=== PATIENT | male | born 1950 | race Caucasian/White ===

== ENCOUNTER 2017-09-02 15:58 | Emergency (ER) | payer MEDICARE, MEDICAID ==
--- NOTE | 2017-09-02 16:55 | ED Physician Chart ---
ED Chief Complaint/HPI - Patient Information Date Seen:: 09/02/17 Time Seen:: 16:15 Chief Complaint:: Abdominal Pain History of Present Illness:: onset x 3 days of increasing, intermittent, crampy, diffuse abdominal pain and distention; no report of trauma, H/As, neck pain, C/P, SOB, cough, A/N/V/D/C, fever, chills, or urinary s/s Allergies:: Allergies Allergy/AdvReac Type Severity Reaction Status Date / Time No Known Allergies Allergy Verified 09/02/17 16:37 Vitals:: Vital Signs - 8 hr 09/02/17 16:19 Temp 97.8 F HR 82 RR 16 BP 140/97 O2 Sat % 98 Historian:: Patient, EMS Review:: Nurse's Note Reviewed, Old Chart Reviewed, EMS run form Reviewed ED Review of Systems - Review of Systems General/Constitutional: No fever, No chills, No weight loss, No weakness, No diaphoresis, No edema, No loss of appetite Skin: No skin lesions, No rash, No bruising Head: No headache, No light-headedness Eyes: No loss of vision, No pain, No diplopia ENT: No earache, No nasal drainage, No sore throat, No tinnitus Neck: No neck pain, No swelling, No thyromegaly, No stiffness, No mass noted Cardio Vascular: No chest pain, No palpitations, No PND, No orthopnea, No edema Pulmonary: No SOB, No cough, No sputum, No wheezing GI: Nausea, Vomiting, Diarrhea, Pain, No melena, No hematochezia, No constipation, No hematemesis G/U: No dysuria, No frequency, No hematuria, No nacturia Musculoskeletal: No bone or joint pain, No back pain, No muscle pain Endocrine: No polyuria, No polydipsia Psychiatric: No prior psych history, No depression, No anxiety, No suicidal ideation, No homicidal ideation, No auditory hallucination, No visual hallucination Hematopoietic: No bruising, No lymphadenopathy Allergic/Immuno: No urticaria, No angioedema Neurological: No syncope, No focal symptoms, No weakness, No paresthesia, No headache, No seizure, No dizziness, No confusion, No vertigo ED Past Medical History - Past Medical History Obtainable: Yes Past Medical History: HTN, DM, Dyslipidemia, ESRD Family History: Diabetes Melitus, HTN Social History: Smoker, Alcohol, No Drug Use, Single, Care Facility Surgical History: other (BKA) Psychiatricy History: None Medication: Reviewed Family Medical History - Family Member Mother History Unknown: Yes Ethnicity: Living Status: ED Physical Exam - Physical Examination General/Constitutional: Awake, Well-developed, well-nourished, Alert, No distress, GCS 15, Non-toxic appearing, Ambulatory Head: Atraumatic Eyes: Lids, conjuctiva normal, PERRL, EOMI Skin: Nl inspection, No rash, No skin lesions, No ecchymosis, Well hydrated, No lymphadenopathy ENMT: External ears, nose nl, TM canals nl, Nasal exam nl, Lips, teeth, gums nl , Oropharynx nl, Tonsils nl Neck: Nontender, Full ROM w/o pain, No JVD, No nuchal rigidity, No bruit, No mass, No stridor Other Neck comments:: supple; no meningeal signs; no cervical tenderness Respiratory: Nl effort/Exclusion Other Respiratory comments:: Lungs: + Rales Cardio Vascular: RRR, No murmur, gallop, rubs, NL S1 S2, Carotid/Femoral/Distal pulses equal bilaterally GI: No tenderness/rebounding/guarding, No organomegaly, No hernia, Normal BS's, No mass/bruits, No McBurney tenderness, Rectum exam nl Other GI comments:: no pulsatile masses; + Distention; + Ascites : No CVA tenderness Extremities: No tenderness or effusion, Full ROM, normal strength in all extremities, No edema, Normal digits & nails Other Extremities comments:: + BKA Neuro/Psych: Alert/oriented, DTR's symmetric, Normal sensory exam, Normal motor strength, Judgement/insight normal, Mood normal, Normal gait, No focal deficits Misc: Normal back, No paraspinal tenderness ED Labs/Radiology/EKG Results - Lab Results Comments:: BNP: 4750;; BUN: 33; Cr: 2.4; WBC: 3.7; Na+: 133 - Radiology Results Comments:: deferred by pt - EKG Interpretations EKG Time:: 17:01 Rate & Rhythm: 79; NSR Comments:: non-specific st-t changes ED Septic Shock - . Is Septic Shock (SBP<90, OR Lactate>4 mmol\L) present?: No - <6hrs of presentation: Vital Signs: Vital Signs - 8 hr 09/02/17 16:19 Temp 97.8 F HR 82 RR 16 BP 140/97 O2 Sat % 98 ED Reassessment (Disposition) - Reassessment Reassessment Condition:: Improved - Diagnosis Diagnosis:: Abdominal Pain; Abdominal Distention; Ascites; Leukopenia; CHF; Renal Insuffiency; CKD; Cirrhosis - Aftercare/Follow up Instructions Aftercare/Follow-Up Instructions:: Counseled pt regarding lab results/diagnosis & need follow up, Counseled pt & family regarding lab results/diagnosis & need follow up - Patient Disposition Discharge/Transfer:: Acute Care w/in this hosp Accepting Physician:: Dr. Liz Time Called:: 1800 Time Responded:: 18:00 Admitted to:: Telemetry Spoke to:: Dr. Liz Admitting Medical Physician:: Dr. Liz Condition at Disposition:: Stable, Improved
[2017-09-02 17:26] LABS: % BASOPHILS 1.3 % (0.0-2.0); % EOSINOPHILS 4.7 % (0.0-5.0); % LYMPHOCYTES 15.4 % (20.0-50.0); % MONOCYTES 9.6 % (2.0-10.0); EOSINOPHILE ABSOLUTE 0.2 Th/cmm (0.1-0.4); HEMOGLOBIN 13.3 gm/dL (12-16); LYMPHOCYTE ABSOLUTE 0.6 Th/cmm (1.5-3.0); MEAN CORPUSCULAR HEMOGLOBIN 27.3 pg (26.0-30.0); MEAN CORPUSCULAR HGB CONC 32.5 pg (28.0-36.0); MEAN PLATELET VOLUME 8.5 fl; MONOCYTE ABSOLUTE 0.4 Th/cmm (0.3-1.0); NEUTROPHILE ABSOLUTE 2.5 Th/cmm (1.8-8.0); PLATELET COUNT 122 Th/cmm (150-400); RED BLOOD COUNT 4.88 Mil/cmm (4.30-5.70); RED CELL DISTRIBUTION WIDTH 16.1 % (11.5-20.0)
[2017-09-02 17:29] LABS: WHITE BLOOD COUNT 3.7 Th/cmm (4.8-10.8)
[2017-09-02 17:47] LABS: ALB/GLOB RATIO 0.6 (1.0-1.8); ALBUMIN 2.9 gm/dL (4.2-5.5); ANION GAP 11.3 (7.0-16.0); BILIRUBIN,TOTAL 1.7 mg/dL (0.3-1.0); CALCIUM SERUM 8.9 mg/dL (8.6-10.3); CARBON DIOXIDE 26.4 mEq/L (21.0-31.0); CREATININE - SERUM 2.4 mg/dL (0.7-1.3); GFR AFRICAN-AMERICAN 35.2 ml/min (>90); GFR NON AFRICAN-AMERICAN 29.1 ml/min; POTASSIUM SERUM 3.7 mEq/L (3.5-5.1); TOTAL PROTEIN,SERUM 7.8 gm/dL (6.0-8.3)
[2017-09-02 17:47] LABS: AMYLASE SERUM 12 U/L (29-103); LIPASE 7 U/L (11-82)
[2017-09-02 18:09] LABS: INR 1.66 (0.5-1.4); PROTHROMBIN TIME (TEST) 17.8 SECONDS (9.5-11.5)
[2017-09-02] MEDS ORDERED: Hydrocodone/APAP 5mg/325mg Tab ONE ×2 (19:55→19:59)
[2017-09-02] MEDS: Hydrocodone/APAP 5mg/325mg Tab PO ONE (19:57)
--- NOTE | 2017-09-03 10:02 | Diagnostic Imaging Report ---
Exam: Portable chest x-ray HISTORY: Chest pain Findings: Portable examination of the chest at 1707 hours reviewed, no prior studies available comparison The study demonstrates extensive bilateral pneumonia with superimposed effusions greater on left side. The mediastinal structures midline. Bony thorax intact. Mild congestion cannot be excluded. IMPRESSION: Extensive bilateral infiltrates with superimposed effusions greater left-sided Question mild congestion. Follow-up examination and clinical correlation is recommended.
== END 2017-09-02 20:30 | disposition left against medical advice (07) ==
LOC: ER 15:58
DX: R18.8 Other ascites (principal); I13.2 Hypertensive heart and chronic kidney disease with heart failure and with stage 5 chronic kidney disease, or end stage renal disease; I50.9 Heart failure, unspecified; N18.6 End stage renal disease; D72.819 Decreased white blood cell count, unspecified; E78.5 Hyperlipidemia, unspecified; F17.200 Nicotine dependence, unspecified, uncomplicated
CPT/HCPCS: 99285; 94760; 93005; 71045; 84484; 83880; 36415; 83605; 85025; 85610; 82140; 82150; 82550; 83690; 80053; 80061; 87081; 87040; Q0162